=== PATIENT | female | born 1950 | race Caucasian/White ===

== ENCOUNTER 2016-11-12 18:26 | Emergency (ER) | payer OTHER, MEDICARE ==
[~2016-11-12] VITALS: Ht 160 cm; Wt 104.6 kg
[2016-11-12] MEDS: morphine INJ 2 MG/ML 1 ML SYRINGE IM PRN ×2 (19:03→19:55)
[2016-11-12 20:11] VITALS: BP 158/80
== END 2016-11-12 20:11 | disposition home or self-care (01) ==
LOC: ED 18:35
DX: R00.2 Palpitations (principal); R07.9 Chest pain, unspecified
CPT/HCPCS: 73030; 96372; 99283; J2270